=== PATIENT | female | born 1995 | race Caucasian/White ===

== ENCOUNTER 2016-11-15 11:12 | Emergency (ER) | payer OTHER ==
[2016-11-15 11:38] VITALS: BP 117/75
--- NOTE | 2016-11-15 11:49 | UC ---
Throat Pain/Nasal Sunil HPI - HPI Summary HPI Summary: 21 YEAR OLD FEMALE PRESENTS WITH SINUS CONGESTION. - History of Current Complaint Chief Complaint: UCGeneralIllness Stated Complaint: SINUS Time Seen by Provider: 11/15/16 11:45 Hx Last Menstrual Period: 2 WKS - Allergies/Home Medications Allergies/Adverse Reactions: Allergies Allergy/AdvReac Type Severity Reaction Status Date / Time Penicillins Allergy See Comment Verified 11/15/16 11:39 Home Medications: Home Medications Drospirenone-Ethinyl Estradiol [Loryna 3-0.02 mg] 1 tab PO 11/15/16 [History] Ibuprofen TAB* [Advil TAB*] 600 mg PO Q6H PRN 11/15/16 [History Confirmed ] PMH/Surg Hx/FS Hx/Imm Hx - Surgical History Surgical History: None - Social History Alcohol Use: Weekly Substance Use Type: None Smoking Status (MU): Never Smoked Tobacco Review of Systems Constitutional: Negative Skin: Negative Eyes: Negative ENT: Nasal Discharge, Sinus Congestion, Sinus Pain/Tenderness Respiratory: Negative Cardiovascular: Negative Gastrointestinal: Negative Genitourinary: Negative Motor: Negative Neurovascular: Negative Musculoskeletal: Negative Neurological: Negative Psychological: Negative All Other Systems Reviewed And Are Negative: Yes Physical Exam Triage Information Reviewed: Yes Vital Signs: Initial Vital Signs Temp 36.8 C 11/15/16 11:32 Pulse 70 11/15/16 11:32 Resp 16 11/15/16 11:32 BP 117/75 11/15/16 11:32 Pulse Ox 98 11/15/16 11:32 Eye Exam: Normal ENT: Positive: Nasal congestion, Nasal drainage Dental Exam: Normal Neck exam: Normal Neck: Positive: 1 Respiratory Exam: Normal Cardiovascular Exam: Normal Abdominal Exam: Normal Musculoskeletal Exam: Normal Neurological Exam: Normal Psychological Exam: Normal Skin Exam: Normal Throat Pain/Nasal Course/Dx - Differential Dx/Diagnosis Provider Diagnoses: SINUSITIS Discharge - Discharge Plan Condition: Stable Disposition: HOME Prescriptions: Amoxicillin CAP* [Amoxicillin 500 MG CAP*] 500 mg PO TID #30 cap Fluticasone NASAL SPRAY 50MCG* [Flonase NASAL SPRAY 50MCG*] 2 spray BOTH NARES DAILY #1 btl Magic M W2 Dru/Maal/Nyst/Lido* 5 ml SWISH SPIT QID #120 ml Patient Education Materials: Sinusitis (ED) Referrals: Spencer LEE,Prudencio Grant [Primary Care Provider] -
== END 2016-11-15 12:05 | disposition home or self-care (01) ==
LOC: UCCORT 11:12
DX: J32.9 Chronic sinusitis, unspecified (principal)
CPT/HCPCS: 99202; G0463

== ENCOUNTER 2019-01-04 09:28 | Emergency (ER) | payer BC, OTHER ==
--- NOTE | 2019-01-04 11:02 | UC ---
Abdominal Pain Female HPI - HPI Summary HPI Summary: 23 y/o female presents to the urgent care c/o RLQ pain radiating to her RT lower back since Monday01/02/2019. Pr reports she had a sudden onset of RLQ abdominal pain that lasted for 1 hr. She has not taking anything to alleviate pain, but pain returns at time, but it is dull in character and sometimes radiates to the RT lower back. This morning she went to work and her pain returned. Now it is resolving only 07/22. She took an Ibuprofen 800mg. Pt states LMP; 11/25/2018 w/ irregular menstrual cycles for the past 6 months when she decided to change into the Nuvaring. Before she was taking. OCP and her period were regular. Hx of HSV I. Deneis urinary symptoms, fever, vaginal discharge, GRIJALVA, dizziness, N/V/D, SOB, chest pain, Hx of kidney stones. - History of Current Complaint Chief Complaint: UCAbdominalPain Stated Complaint: ABD/BACK PAIN Time Seen by Provider: 01/04/19 11:00 Hx Obtained From: Patient Hx Last Menstrual Period: irregular ?: No - 11/25/2018 Onset/Duration: Sudden Onset - RLQ abdominal pain, Lasting Days - 3 days, Still Present Timing: Constant - achy pain Severity Initially: Mild Severity Currently: Mild Pain Intensity: 3 Pain Scale Used: 0-10 Numeric Location: Discrete At: RLQ Radiates: Yes Radiates to: Back - RT lower back Character: Aching Aggravating Factor(s): Nothing Alleviating Factor(s): OTC Analgesics - Ibuporfen 800mg last taken morning Associated Signs and Symptoms: Positive: Back Pain - lower back pain. Negative : Fever, Cough, Dizzy, Urinary Symptoms, Vaginal Bleeding, Vaginal Discharge, Nausea, Vomiting, Diarrhea - Risk Factors Ectopic Risk Factor: Negative Ovarian Torsion Risk Factor: Negative Allergies/Adverse Reactions: Allergies Allergy/AdvReac Type Severity Reaction Status Date / Time Penicillins Allergy See Comment Verified 01/04/19 09:48 Home Medications: Home Medications Etonogest/Eth.estradiol (Nf) [Nuvaring Vaginal Ring] 1 each VAGINAL .SEE COMMENTS 01/04/19 [History Confirmed 01/04/19] Ibuprofen TAB* [Motrin TAB* 800 MG] 800 mg PO ONCE 01/04/19 [History Confirmed 01/04/19] PMH/Surg Hx/FS Hx/Imm Hx Previously Healthy: Yes - Pt denies PMHX - Surgical History Surgical History: None - Social History Alcohol Use: Occasionally Substance Use Type: None Smoking Status (MU): Never Smoked Tobacco Review of Systems All Other Systems Reviewed And Are Negative: Yes Constitutional: Positive: Negative Skin: Positive: Negative Eyes: Positive: Negative ENT: Positive: Negative Respiratory: Positive: Negative Cardiovascular: Positive: Negative Gastrointestinal: Positive: Abdominal Pain - RLQ abdominal pain raditing to the Rt lower back at times Genitourinary: Positive: Negative Motor: Positive: Negative Neurovascular: Positive: Negative Musculoskeletal: Positive: Negative Neurological: Positive: Negative Psychological: Positive: Negative Is Patient Immunocompromised?: No Physical Exam - Summary Physical Exam Summary: Vital signs: reviewed General: well developed, well nourished female sitting in the examining table w/o any acute distress. Head: Normocephalic, no lesions. Eyes: PERRLA, EOM's full, conjunctiva clear, fundi grossly normal. Ears: EAC's clear, TM's normal. Nose: Mucosa normal, no obstruction. Throat: Clear, no exudates, no lesions. Neck: Supple, no masses, no thyromegaly, no bruits. Chest: Lungs clear, no rales, no rhonchi, no wheezes. Heart: RR, no murmurs, no rubs, no gallops. Abdomen : Positive: Nontender, Flat with no distention. No surface trauma, scars, incisions. normal bowel sounds present in all four quadrants. No tenderness, guarding, rigidity to palpation. No masses palpated, no pulsation in epigastric area. No organomegaly. Negative Cotati signs. No periumbilical tenderness. No rebound in the lower quadrants. NT over McBurneys point. Good femoral pulses bilaterally. No hernia noted. No CVAT bilaterally Abdomen: Soft, no tenderness, no masses, BS normal. Pelvic: External genitalia within normal limits. There is no lesions there is no masses noted. Speculum exam: The vaginal frank are within normal limits w / normal clear vaginal discharge, no lesions or rashes. The cervix is closed with no lesions or masses. There is no CMT's, and no adnexal masses. Sample sent to Lab for G/C and Affirm panel. Rectal: Pt declined, Back: Normal curvature, no tenderness. Extremities: FROM, no deformities, no edema, no erythema. Neuro: Physiological, no localizing findings. Skin: Normal, no rashes, no lesions noted. Triage Information Reviewed: Yes Vital Signs: Initial Vital Signs Temp 99.2 F 01/04/19 09:50 Pulse 57 01/04/19 09:50 Resp 18 01/04/19 09:50 BP 100/65 01/04/19 09:50 Pulse Ox 99 01/04/19 09:50 Abd Pain Female Course/Dx - Course Course Of Treatment: 23 y/o female presents to the urgent care c/o RLQ pain radiating to her RT lower back since Monday01/02/2019. Pr reports she had a sudden onset of RLQ abdominal pain that lasted for 1 hr. She has not taking anything to alleviate pain, but pain returns at time, but it is dull in character and sometimes radiates to the RT lower back. This morning she went to work and her pain returned. Now it is resolving only 3/. She took an Ibuprofen 800mg. Pt states LMP; 11/25/2018 w/ irregular menstrual cycles for the past 6 months when she decided to change into the Nuvaring. Before she was taking. OCP and her period were regular. Hx of HSV I. Deneis urinary symptoms, fever, vaginal discharge, GRIJALVA, dizziness, N/V/D, SOB, chest pain, Hx of kidney stones.Hx obtained. Pt is hemodynamically stable , A&OX3, Vitals, WNL. PE:WNl, no abdominal tenderness or B/L CVA tenderness eliceted on examination. UA: negative, test: negative. Pelvic Exam: WNL. Nuvaring no visualized. Trasvaginal US ordered to r/o any abnormality: IMPRESSION:NO ACUTE SONOGRAPHIC PATHOLOGY OF THE VISUALIZED PORTION OF THE PELVIS. NO SONOGRAPHIC FEATURES OF TORSION. PLEASE NOTE THAT PARTIAL OR INTERMITTENT TORSION MAY BE SONOGRAPHICALLY NORMAL. STD's screening sent to lab. Pt will be notified of any abnormality. Pt strongly advised to f/u w/ her [employer] for further management on her pelvic pain and irregular menstrual cycle. However if abdominal pain becomes severe associated w/ N/V to go inmediately to the ER for further management. Pt understood and agreed w/ plan of care - Differential Dx/Diagnosis Differential Diagnosis: Appendicitis, Ectopic , Ovarian Cyst, Renal Colic, Urinary Tract Infection Provider Diagnosis: Acute abdominal pain, Screening for STD (sexually transmitted disease) Discharge ED - Sign-Out/Discharge Documenting (check all that apply): Patient Departure - D/c home All imaging exams completed and their final reports reviewed: Yes - Discharge Plan Condition: Stable Disposition: HOME Patient Education Materials: Berto (ED), Acute Abdominal Pain (DC) Referrals: Spencer LEE,Prudencio Grant [Primary Care Provider] - 2 Days Additional Instructions: 1-Please continue taking ibuprofen PO q6-8hrs prn as instructed after meals to alleviate pain and swelling. Increase fluid intake, eat well, rest and avoid strenuous exercise. 2- If abdominal pain returns w/ N/V please go immediately to the ER for further management. Otherwise f/u w/ your [employer] or your PCP if not complete resolution of your symptoms for further management. 3- Screening for STD's was sent to the lab. You will be notified of any abnormal result. - Billing Disposition and Condition Condition: STABLE Disposition: Home - Attestation Statements Provider Attestation: Patient not examed by me. I was available for consult. KIRSTEN
[2019-01-04 12:01] VITALS: BP 109/60
[2019-01-07 13:26] LABS: Chlamydia trachomatis NAA Negative (Negative); Neisseria gonorrhoeae (GC) NAA Negative (Negative)
== END 2019-01-04 13:04 | disposition home or self-care (01) ==
LOC: UCEAST 09:28
DX: R10.31 Right lower quadrant pain (principal); Z20.2 Contact with and (suspected) exposure to infections with a predominantly sexual mode of transmission; Z88.0 Allergy status to penicillin
CPT/HCPCS: 76830; 81003; 84702; 87480; 87491; 87510; 87591; 87661; 99211; G0463